=== PATIENT | male | born 1940 | race Hispanic/Latino ===

== ENCOUNTER → 2020-03-17 17:26 | Outpatient (CLI) | payer MEDICARE, SELFPAY | PROVIDERS: PCP Nurse Practitioner Family; Referring Provider Nurse Practitioner Family; Visit Provider Nurse Practitioner Family | DX: U07.1 COVID-19 (principal) | CPT/HCPCS: 87635; C9803; U0003 ==

== ENCOUNTER 2020-04-19 09:53 | Observation (INO) | payer SELFPAY ==
[2020-04-19] VITALS (8 sets, daily range): BP systolic 118–151; BP diastolic 68–77; PULSE 72–88; RESP 16–19; TEMP 36.6–37.7; O2SAT 94–99; BMI 22.3; BMI 21.7
--- NOTE | 2020-04-19 10:10 | EKG12_ITS ---
Test Reason : PAIN IN RIGHT CHEST Blood Pressure : / mmHG Vent. Rate : 079 BPM Atrial Rate : 079 BPM P-R Int : 148 ms QRS Dur : 084 ms QT Int : 362 ms P-R-T Axes : 038 -18 039 degrees QTc Int : 415 ms Normal sinus rhythm Increased R/S ratio in V1, consider early transition or posterior infarct Abnormal ECG Confirmed by NERIS PERDOMO, KARISSA ([id number]), editor & co founder ASHWIN JAQUEZ ([id number]) on 04/21/2020 2:04:39 PM Referred By: PRO Confirmed By:KARISSA CORDON MD
--- NOTE | 2020-04-19 10:11 | CT_ITS ---
STUDY: CT ABDOMEN AND PELVIS WITHOUT CONTRAST REASON FOR EXAM: Male, 79 years old. RT FLANK PAIN. Hx of gout RADIATION DOSAGE (If Supplied By Facility): CTDIvol = ( 6.04 ) mGy, DLP = ( 292.95 ) mGycm TECHNIQUE: Transaxial images were obtained from the dome of the diaphragm to the symphysis pubis without oral contrast, and without intravenous contrast. Sagittal and coronal images were reconstructed. Individualized dose optimization techniques were used for this CT. COMPARISON: None. FINDINGS: Minimal linear atelectasis at the left lung base. The visualized portions of the heart are within normal limits. Normal liver. Tiny gallstones. Normal spleen. Normal pancreas. Normal bilateral adrenal glands. Normal right kidney. Normal left kidney. Normal visualized stomach. Normal small intestine. Normal colon. The appendix is visualized and appears normal. There is diffuse atherosclerotic calcification of the abdominal aorta, without a demonstrated aneurysm. Normal inferior vena cava. Normal retroperitoneum. Normal urinary bladder. There is enlargement of the prostate gland. It measures 3.9 cm x 5.1 cm. Central calcifications are seen within it. There is a left-sided inguinal hernia containing adipose tissue. There are diffuse degenerative changes of the visualized lumbar spine. CT/Abdomen/Pelvis without Cont IMPRESSION: Prostatic enlargement. Tiny gallstones. Electronically Signed: Pawel Hoskins, at 11:11 EST , Service support ,
--- NOTE | 2020-04-19 10:11 | ED.VISSUMM ---
- ER Visit Summary Date of Service: 04/19/20 Chief Complaint: [Abdominal pain] History of Present Illness: The patient is a 79 M [presents to the emergency department with right-sided abdominal pain that started around midnight. Patient rates the pain a 10 out of 10 currently. Patient states that the pain came on gradually and is now continuous. It is not worse with breathing or movement. He was not able eat breakfast this morning. Has had no nausea or vomiting. She had no diarrhea. He denies urinary symptoms. He denies any blood in his stool or black tarry stool. Granddaughter states that he had a fever this morning up to 1015 tympanic. Patient did have history of COVID-19 in early March. Patient has history of gout. He complains of some bilateral knee pain and left ankle pain. Has had no trauma to his chest or extremities. Patient does not speak Tajik and his granddaughter interprets for him.] Patient has history of gout and no other medical issues. Physical Examination: [HEENT-PERRLA, EOMI. Cranial nerves II through XII grossly intact. TMs clear. Mucous membranes moist. No adenopathy. Cardiovascular-regular rate and rhythm without murmur or ectopy Lungs-clear to auscultation, chest wall stable without crepitus or subcu emphysema. Patient does have tenderness palpation of the right anterior chest wall into the mid axillary line. Abdomen-normoactive bowel sounds, soft, nontender, no rebound or rigidity, no peritoneal signs. Patient does have some CVA tenderness on the right. Extremities-intact ?4, normal range of motion, normal pulses, atraumatic. Patient does have some faint erythema to the anterior aspect of the left knee with gouty tophi noted. Patient has pain with range of motion. No significant effusion noted. Patient also has erythema to the lateral aspect of the ankle with pain with range of motion some soft tissue swelling noted. Test Results: [EKG obtained on arrival showed a sinus rhythm with a ventricular rate 79 bpm. CBC with differential showed a white count of 21,000, hemoglobin 12.8, hematocrit 38.8, placed 322. Chemistries unremarkable. LFTs were normal. Lipase 157. Urinalysis was normal. Troponin is less than 0.015. D-dimer was elevated 3.96. Chest x-ray obtained showed increased markings in the lower lung bases right greater than left. CT of the chest showed no evidence of PE or dissection. Patient did have a CT scan of the abdomen pelvis as well without contrast that showed tiny gallstones in her gallbladder and prostatic enlargement.] Emergency Department Course and Treatment: [IV line established on arrival. Patient was medicated with morphine and Zofran. At this time the concern is the elevated temperature at home to 101.5 as well as the elevated white blood cell count with no old comparisons. My suspicion is likely that patient has gouty flare in the knee and ankle however he is having a hard time bearing weight and walking around. My suspicion is low for a septic arthritis however. I did discuss case with hospitalist to evaluate patient for admission and will admit patient with referral to orthopedics.] Treatment Plan: [Admit] Disposition: [Admit] Impression: [Inability to ambulate secondary to knee and ankle pain Chest wall pain Gouty arthropathy] This note was generated with [employer] dictation software. It may contain incorrect words, spelling, and punctuation that were not noted in review of the chart prior to signing ED Disposition - Plan for ED Patient: Referrals: Jose Valdes NP, [facility] [Primary Care Provider] -
[2020-04-19] MEDS: 0.9% Normal Saline 1,000 ML 150 ML IV (10:20)
[2020-04-19 10:23] LABS: Absolute Lymphocyte Count 3.04 X10^3/uL (0.83-4.51); Absolute Neutrophil Count 15.2 X10^3/uL (2.0-7.7); Basophil# 0.06 X10^3/uL; Basophil% 0.3 % (0-1); Eosinophil# 0.03 X10^3/uL; Eosinophils% 0.1 % (0-5); Hematocrit 38.8 % (40-54); Hemoglobin 12.8 g/dL (13.0-16.5); Lymphocyte # 3.04 X10^3/ul (4.0); Lymphocyte % 14.4 % (19-41); Mean Corpuscular Hgb 30.4 pg (27.0-32.0); Mean Corpuscular Volume 92.2 fL (80-94); Mean Platelet Vol. 10.5 fl (6.2-12.0); Monocyte# 2.54 X10^3/uL; Monocyte% 12.1 % (0-10); NRBC Flagged by Analyzer 0 % (0-5); Neutrophil # 15.15 X10^3/uL (2.7-7.7); Neutrophil % 72.1 % (47-70); POSITIVE DIFFERENTIAL YES; Platelet Count 322 K/mm3 (150-450); RBC Distribution Width CV 14.6 % (11.6-14.6); RBC Distribution Width SD 49.6 fl (35.1-43.9); Red Blood Count 4.21 M/mm3 (4.6-6.2)
[2020-04-19] MEDS: Ondansetron 4 MG/2 ML Vial IV (10:25)
--- NOTE | 2020-04-19 10:25 | RAD_ITS ---
STUDY: X-RAY CHEST REASON FOR EXAM: Male, 79 years old. ABDOMINAL PAIN, RECENT COVID TECHNIQUE: Single AP portable view of the chest. COMPARISON: None. FINDINGS: EKG electrodes are seen. Mild increased markings at the lung bases likely more prominent on the right side. Follow-up is recommended. There is no demonstrated pleural abnormality. Normal size heart. Normal mediastinum and goran. Normal visualized pulmonary arteries. There is atherosclerotic calcification of the aortic arch with tortuosity. There are diffuse degenerative changes of the visualized thoracic spine. Normal visualized ribs, clavicles, and shoulders. There is no demonstrated abnormality of the visualized soft tissue structures of the upper abdomen. RAD/Chest 1 View (Portable) IMPRESSION: Mild degree of increased markings at the lung bases worse on the right side. Electronically Signed: Pawel Hoskins, at 10:52 EST , Service support ,
[2020-04-19 10:27] LABS: Differential Indicated SCAN CRITERIA MET
[2020-04-19] MEDS: Morphine 4 MG/ML Syringe IV (10:27)
[2020-04-19 10:41] LABS: ALB/GLOB Ratio 0.8 RATIO (0.9-2.4); AST(SGOT) 14 U/L (15-37); Alanine Aminotransfer ALT/SGPT 23 U/L (16-61); Albumin, Serum 3.2 g/dL (3.2-5.0); Alkaline Phosphatase 76 U/L (45-117); Anion Gap 6 (5-15); BUN 21 mg/dL (7-18); BUN/Creat Ratio 11.9 RATIO (10-20); Calcium,Total 8.9 mg/dL (8.5-10.1); Chloride 108 mmol/L (98-107); Creatinine, Serum 1.76 mg/dL (0.70-1.30); EST Glomerular Filtration Rate 40 mL/min (>60); Est Glom Filt Rate - Afr Amer 48 mL/min (>60); Estimated Creatinine Clearance 31.04 ml/min; Globulin 4.2 g/dL (2.2-4.2); Glucose 106 mg/dL (74-106); Lipase 157 U/L (73-393); Potassium 3.9 mmol/L (3.5-5.1); Protein, Total 7.4 g/dL (6.4-8.2); Sodium Level 140 mmol/L (136-145)
[2020-04-19 10:43] LABS: D-Dimer Quantitative (DVT/PE) 3.96 FEU/ug/m (0.27-0.49)
--- NOTE | 2020-04-19 10:47 | CT_ITS ---
STUDY: CTA CHEST REASON FOR EXAM: Male, 79 years old. CP RADIATION DOSAGE (If Supplied By Facility): CTDIvol = ( 10.59 ) mGy, DLP = ( 491.78 ) mGycm TECHNIQUE: The examination was performed with the intravenous administration of IV 75mL Isovue-370. Post-processing of the angiographic images was performed, with multiplanar reformation and 3D reconstruction. Individualized dose optimization techniques were used for this CT. COMPARISON: Comparison is made with prior radiograph done earlier in the day. FINDINGS: Normal enhancement of the main pulmonary artery and right and left pulmonary arteries. Normal enhancement of the bilateral peripheral pulmonary arteries. There is no demonstrated pulmonary embolism. There is atherosclerotic calcification of the aortic arch with tortuosity. There is no demonstrated aortic dissection. There are calcifications of the coronary arteries. Normal mediastinum. Normal hilar regions. Normal visualized trachea and bronchi. The lungs are well expanded. 6.6 mm calcified granuloma in the anterior right upper lobe. Minimal increased markings in the peripheral aspect of the right upper lobe suggestive of a scarring. Mild degree of localized bronchiectasis. Normal pleura. Normal chest wall structures. There are degenerative changes of thoracic spine. Small hilar hernia. CT/CTA Chest W/WO Contrast IMPRESSION: Calcified granuloma in the right lung apex. Findings suggestive of scarring in the anterior lateral aspect of the right upper lobe. Electronically Signed: Pawel Hoskins, at 12:09 EST , Service support ,
[2020-04-19 12:02] LABS: Bacteria 0 SEEN /hpf (None Seen); Mucous, Urine 0 SEEN /hpf (<or=2+); Squamous Epithelial Cells - UA 0 SEEN /hpf (0-5)
[2020-04-19 12:18] LABS: Color, Urine Yellow (Yellow); Glucose, Dipstick Normal (Normal); Ketone-Dipstick Negative (Negative); Leukocyte Esterase-Dipstick 25 /ul (Negative); Nitrite-Dipstick Negative (Negative); Occult Blood-Urine 25 /ul (Negative); Protein-Dipstick 100 mg/dl (Negative); Urine Bilirubin Dipstick Negative (Negative); Urine Clarity Clear (Clear); Urine Urobilinogen Normal (Normal)
[2020-04-19 12:30] LABS: Red Blood Cells-Urine 0-5 SEEN /hpf (0-5); White Blood Cells 0-5 SEEN /hpf (0-5)
--- NOTE | 2020-04-19 13:02 | HP.PCM_ITS ---
Problem List (1) SIRS (systemic inflammatory response syndrome) Status: Acute (2) Gout attack Status: Acute History of Present Illness Date of Admission: 04/19/20 Chief Complaint: fever. knee and ankle pain The patient is a 79 year old M presents not feeling well this morning. Had a temperature of 101.5 at home. Patient is also having pain in his left knee and ankle. Patient does have known history of gout but just has never felt ill with gout flares before so presented to the emergency room. In the emergency room patient had a white count of 21,000. Due to some translation injury issues is concerned the patient was having abdominal pain so patient did have an abdominal CT that showed no acute process. The hospital service was contacted for admission regards to evaluation for further infectious etiology regards to the patient's symptoms. Patient did contract COVID-19 earlier in March. According to his granddaughter, his course was uncomplicated. Patient does not speak Angolan so history is obtained through the patient's granddaughter who is present at bedside. [] Past Medical History Medical History: Medical History (Last Reviewed 04/19/20 @ 13:[address] Diaz Rivas DO) Gout M10.9 HTN (hypertension) I10 Allergies Penicillins Allergy (Verified 04/19/20 09:56) Swelling Home Medications: Ambulatory Orders Medication Instructions Recorded Allopurinol 50 mg PO DAILY 04/19/20 Lisinopril 2.5 mg PO DAILY 04/19/20 Smoking Status: Never smoker Alcohol: None - *Family History Maternal Family History: Family History (Last Reviewed 04/19/20 @ 13:[address] Diaz Rivas DO) Other Gout Review of Systems Constitutional: Reports: Chills, Fever, Malaise. Denies: Anorexia Eyes: Denies: Blurred vision, Double vision HEENT: Denies: Head Aches, Sinus Congestion, Sinus Drainage Cardiovascular: Denies: Chest Pain, Palpitations Respiratory: Denies: Cough, Shortness of breath at rest, Sputum production Gastrointestinal: Denies: Abdominal Pain, Nausea, Vomiting Genitourinary: Denies: Dysuria Hematologic/ Lymphatic: Denies: Easy Bruising, Easy Bleeding, Hx of blood clot Comment: All review of systems were negative except as mentioned above in the history of present illness and the other review of systems. VTE Information - Inpt Only VTE Present on Admission: No VTE Mechan Device Prophylaxis: None VTE Pharm Prophylaxis ordered?: No - Physical Exam Vitals/I&O's: Vital Signs Temp Pulse Resp BP Pulse Ox 37.7 C H 77 18 138/73 H 97 04/19/20 10:28 04/19/20 10:28 04/19/20 10:28 04/19/20 10:28 04/19/20 10:28 Oxygen Delivery Method Room Air Weight: 66.678 kg Body Mass Index (BMI) 22.3 General: Alert, Cooperative, No apparent distress HEENT: Atraumatic, Normocephalic Oral: Moist Mucosa, No Gingival or Mucosal Lesions/ Ulcerations Neck: No Nodes, Thyroid Normal Size and Texture Lungs: Clear to auscultation, Normal air movement Cardiovascular: Regular rate, Regular Rhythm, Normal S1, Normal S2, No murmurs Abdomen: Bowel Sounds Present, Soft, Non Tender, Non-Distended, No Hepato- splenomegaly Extremities: - - Patient with tenderness and swelling of the left knee and left lateral ankle with tenderness palpation tophi noted on the anterior right knee. Psych/Mental Status: Normal Affect, Appropriate Laboratory Results 04/19/20 10:15: WBC 21.0 H, RBC 4.21 L, Hgb 12.8 L, Hct 38.8 L, MCV 92.2, MCH 30.4, MCHC 33.0, RDW Std Deviation 49.6 H, RDW Coeff of [place] 14.6, Plt Count 322, MPV 10.5, Immature Gran % (Auto) 1.000 H, Neut % (Auto) 72.1 H, Lymph % (Auto) 14.4 L, [place] % (Auto) 12.1 H, Eos % (Auto) 0.1, Baso % (Auto) 0.3, Absolute Neuts (auto) 15.2 H, Absolute Lymphs (auto) 3.04, Nucleated RBC % 0, Diff Path Review September04/19/20 10:15: D-Dimer Quant (PE/DVT) 3.96 H* 04/19/20 10:15: Sodium 140, Potassium 3.9, Chloride 108 H, Carbon Dioxide 26.0, Anion Gap 6, BUN 21 H, Creatinine 1.76 H, Estim Creat Clear Calc 31.04, Est GFR (MDRD) Af Amer 48 L, Est GFR (MDRD) Non-Af 40 L, BUN/Creatinine Ratio 11.9, Glucose 106, Calcium 8.9, Total Bilirubin 0.60, AST 14 L, ALT 23, Alkaline Phosphatase 76, Troponin I < 0.015, Total Protein 7.4, Albumin 3.2, Globulin 4.2, Albumin/Globulin Ratio 0.8 L, Lipase 157 04/19/20 10:15: ESR Pending 04/19/20 10:15: Uric Acid Pending, C-React Prot Ext Range Pending 04/19/20 11:47: Urine Color Yellow, Urine Clarity Clear, Urine pH 6.0, Ur Specific [place] 1.010, Urine Protein 100 H, Urine Glucose (UA) Normal, Urine Ketones Negative, Urine Occult Blood 25 H, Urine Nitrite Negative, Urine Bilirubin Negative, Urine Urobilinogen Normal, Ur Leukocyte Esterase 25 H, Urine RBC 0-5 SEEN, Urine WBC 0-5 SEEN, Ur Squamous Epith Cells 0 SEEN, Urine Bacteria 0 SEEN, Urine Mucus 0 SEEN Clinical Impression(s) from Imaging Studies Abdomen/Pelvis CT 04/19/20 10:11 IMPRESSION: Prostatic enlargement. Tiny gallstones. Electronically Signed: Pawel Hoskins, at 11:11 EST , Service support , Chest X-Ray 04/19/20 10:25 IMPRESSION: Mild degree of increased markings at the lung bases worse on the right side. Electronically Signed: Pawel Hoskins, at 10:52 EST , Service support , Chest CTA 04/19/20 10:47 IMPRESSION: Calcified granuloma in the right lung apex. Findings suggestive of scarring in the anterior lateral aspect of the right upper lobe. Electronically Signed: Pawel Hoskins, at 12:09 EST , Service support , Current Medications Sodium Chloride () 1,000 mls @ 150 mls/hr IV .[id number] KATHY Last Admin: 04/19/20 10:20 Dose: 150 mls/hr Documented by: Assessment/Plan All Active Problems SIRS (systemic inflammatory response syndrome) (Acute) Gout attack (Acute) 1. Systemic inflammatory spine syndrome: Feel that this is actually an infectious process but more inflammatory due to an acute gout flare. Infectious work-up thus far has been unremarkable. 2. Suspected acute gout flare in the left knee and left ankle. Discussed with Dr. Cao and discussed the case with her. Informed her that I feel that this is more likely a gout flare but cannot rule out septic arthritis. She is agreed to see the patient in consult and perform an aspiration. We will check the aspirate for crystals as well as Gram stain and culture. If this is confirmed to be gout then would initiate the patient on prednisone. 3. VTE prophylaxis: Not indicated this time patient is observation status. OBSV E&M: [id number] Initial observation care L2
[2020-04-19 13:10] LABS: Erythrocyte Sedimentation Rate 58 mm/hr (0-20); Uric Acid 5.7 mg/dL (3.5-7.2)
[2020-04-19 13:41] LABS: Pathologist Comment May follow
[2020-04-19 14:32] LABS: Synovial Fld Mononuclear WBC % 16.1 %; Synovial Fld Polynuclear WBC % 83.9 %
--- NOTE | 2020-04-19 14:54 | CONS.ORTHO ---
Problem List (1) Left knee pain Status: Acute Qualifiers: Chronicity: acute Qualified Code(s): M25.562 - Pain in left knee Comment: Rule out septic joint - Consult Date of Consult: 04/19/20 Patient seen at bedside in room #9 in the emergency department for left knee pain. Patient came to the emergency department today with primary complaint of left knee pain. He was having a low-grade fever prior to coming the emergency department and was thought to have some abdominal pain at the same time with his daughter here it turns out his complaint was the knee pain. Patient was resting comfortably with no signs of acute distress or discomfort on entering the room. Patient is breathing easily and is alert and oriented x3 (patient does have his daughter translating for him as he does not speak Montserratian.) Inspection of the left knee shows evidence of generalized swelling with mild to moderate effusion. There is no generalized erythema of the knee. Patient does have warmth on palpation of the knee with some minor tenderness on palpation as well. There is no indurated areas. Patient does have intact motor function of the knee/ankle/foot. His lower leg compartments are soft and nontender with no calf tenderness and negative Homans. Patient does have some minor swelling of the ankle joint with some minor pink erythema on the lateral aspect. He has no tenderness on palpation of the ankle he states. At this time the knee was prepped with Betadine prep sticks and wiped with alcohol swab and then the joint was aspirated using a superior retropatellar approach. Approximately 34 cc of bright yellow slightly turbid fluid was pulled from the joint. There was no ra pus/purulence no evident arthrosis. Fluid will be sent for a stat cell count and Gram stain as well as culture and sensitivity as well as crystal analysis. Next after treatment really is pending these results. If there is any evidence of bacterial organism/septic joint the patient be taken to the OR for irrigation. If no infection but other cause determined he will be treated appropriately. Notify our office of increasing pain, increased swelling/effusion, erythema, or other signs of inflammation or infection. - Reason for Consult Consultation for left knee pain with effusion to rule out septic joint versus gouty arthropathy. Aspiration was performed at bedside labs run from fluid. [id number]: [id number] Drain/inj joint/bursa w/o us
[2020-04-19 15:44] LABS: RBC /Synovial Fluid 0 /mm3 (0)
[2020-04-19 15:45] LABS: AUTO B FLUID DILUENT BKGD CT WBC <0.1 RBC <0.01 (W<.1,R<.01); Source / Synovial Fluid LEFT KNEE; Source- Body Fluid SYNOVIAL
[2020-04-19 15:46] LABS: Appearance /Synovial Fluid Sl hazy (CLEAR); Color / Synovial Fluid Yellow (Pale Yellow); Viscosity / Synovial Fluid Mod. Viscous (HIGH)
[2020-04-19 15:51] LABS: Lymph 2 %; Monocyte /Synovial Fluid 17 %; Neutrophil 81 % (0-25); Other Cell /Synovial Fluid 0 %; Plasma Cell /Synovial Fluid 0 %
[2020-04-19 15:52] LABS: Body Fluid QC Type(s) BFQ1
[2020-04-19 15:53] LABS: Synovial Fld Mononuclear WBC # 2.201 10^3/ul
[2020-04-19 16:06] LABS: CRYSTALS, BODY FLUID MONOSODIUM URATE
--- NOTE | 2020-04-19 17:04 | PCS.PANDOC ---
PANDEMIC DOCUMENTATION INITIATED: Date: 04/19/20 Time: 1640
[2020-04-19] MEDS: predniSONE 20 MG Tablet 60 MG PO (17:13)
[2020-04-19] MEDS: Acetaminophen 325 MG Tablet 650 MG PO (19:06)
[2020-04-19] MEDS: oxyCODONE 5 MG Tablet PO (19:06)
[2020-04-20 01:25] VITALS: PULSE 54
[2020-04-20 04:00] VITALS: BP 120/57; PULSE 53; RESP 16; TEMP 36.4; O2SAT 98
[2020-04-20 07:13] LABS: Absolute Lymphocyte Count 1.55 X10^3/uL (0.83-4.51); Absolute Neutrophil Count 11.4 X10^3/uL (2.0-7.7); Basophil# 0.01 X10^3/uL; Basophil% 0.1 % (0-1); Hematocrit 36.7 % (40-54); Hemoglobin 11.8 g/dL (13.0-16.5); Lymphocyte # 1.55 X10^3/ul (4.0); Lymphocyte % 11.4 % (19-41); Mean Corp Hgb Conc 32.2 g/dL (32-36); Mean Corpuscular Hgb 29.5 pg (27.0-32.0); Mean Corpuscular Volume 91.8 fL (80-94); Mean Platelet Vol. 10.6 fl (6.2-12.0); Monocyte# 0.58 X10^3/uL; Monocyte% 4.3 % (0-10); NRBC Flagged by Analyzer 0 % (0-5); Neutrophil # 11.37 X10^3/uL (2.7-7.7); Neutrophil % 83.3 % (47-70); Platelet Count 308 K/mm3 (150-450); RBC Distribution Width CV 14.5 % (11.6-14.6); RBC Distribution Width SD 48.8 fl (35.1-43.9); White Blood Count 13.6 K/mm3 (4.4-11.0)
[2020-04-20 07:37] LABS: ALB/GLOB Ratio 0.6 RATIO (0.9-2.4); AST(SGOT) 16 U/L (15-37); Alanine Aminotransfer ALT/SGPT 21 U/L (16-61); Albumin, Serum 2.7 g/dL (3.2-5.0); Alkaline Phosphatase 69 U/L (45-117); Anion Gap 4 (5-15); BUN 22 mg/dL (7-18); BUN/Creat Ratio 15.5 RATIO (10-20); Calcium,Total 8.9 mg/dL (8.5-10.1); Chloride 108 mmol/L (98-107); Creatinine, Serum 1.42 mg/dL (0.70-1.30); EST Glomerular Filtration Rate 51 mL/min (>60); Est Glom Filt Rate - Afr Amer 62 mL/min (>60); Estimated Creatinine Clearance 37.43 ml/min; Globulin 4.2 g/dL (2.2-4.2); Glucose 149 mg/dL (74-106); Potassium 4.7 mmol/L (3.5-5.1); Protein, Total 6.9 g/dL (6.4-8.2); Sodium Level 136 mmol/L (136-145)
[2020-04-20] MEDS: predniSONE 20 MG Tablet 40 MG PO (08:28)
[2020-04-20] MEDS: Allopurinol 100 MG Tablet 50 MG PO (08:29)
[2020-04-20] MEDS: Lisinopril 2.5 MG Tablet PO (08:29)
--- NOTE | 2020-04-20 08:45 | PCM.DC ---
- Discharge Diagnoses Current Active Problems: Current Active and Chronic Problems (Last Reviewed 04/19/20 @ 13:[address] Diaz Rivas, DO) SIRS (systemic inflammatory response syndrome) (Acute) Gout attack (Acute) Left knee pain (Acute) Rule out septic joint You will use the following diet at home:: No restrictions - no alcohol. coffee is ok to drink. Call your doctor if you observe: - - worsening knee and ankle pain. Allergies/Adverse Reactions: Allergies Penicillins Allergy (Verified 04/19/20 09:56) Swelling Medications to take at Discharge Acetaminophen [Tylenol Extra Strength] 500 mg PO DAILY PRN PRN 04/19/20 Allopurinol 50 mg PO DAILY 04/19/20 Lisinopril 2.5 mg PO DAILY 04/19/20 Prednisone 10 mg PO DAILY #30 tab 04/20/20 The following prescriptions were given: Prednisone 10 mg PO DAILY #30 tab Transmission Status: Pending to [id number] Primary Care Physician: Jose Valdes NP, [facility]ATORY CARE-C [Primary Care Provider] - Within 2 Weeks Test Results: Test results from this visit will be discussed in further detail at your follow-up appointment, if applicable. Proposed Discharge Date: 04/20/20
[2020-04-20 08:46] VITALS: BP 145/78; PULSE 60; RESP 18; TEMP 36.6; O2SAT 99
--- NOTE | 2020-04-20 08:46 | PCM.DC.SUM ---
Discharge Date and Diagnosis - Problem List Patient Problems: Active and Suspected Problems (Last Reviewed 04/19/20 @ 13:[address] Diaz Rivas DO) SIRS (systemic inflammatory response syndrome) (Acute) Gout attack (Acute) Left knee pain (Acute) Rule out septic joint Date of Admission: 04/19/20 Date of Discharge: 04/20/20 - Primary Discharge Diagnosis Acute Problems: Active Problems (Last Reviewed 04/19/20 @ 13:[address] Diaz Rivas DO) SIRS (systemic inflammatory response syndrome) (Acute) Gout attack (Acute) Left knee pain (Acute) Rule out septic joint Hospital Course and Treatment Imaging Results: Clinical Impression(s) from Imaging Studies Abdomen/Pelvis CT 04/19/20 10:11 IMPRESSION: Prostatic enlargement. Tiny gallstones. Electronically Signed: Pawel Hoskins, at 11:11 EST , Service support , Chest X-Ray 04/19/20 10:25 IMPRESSION: Mild degree of increased markings at the lung bases worse on the right side. Electronically Signed: Pawel Hoskins, at 10:52 EST , Service support , Chest CTA 04/19/20 10:47 IMPRESSION: Calcified granuloma in the right lung apex. Findings suggestive of scarring in the anterior lateral aspect of the right upper lobe. Electronically Signed: Pawel Hoskins, at 12:09 EST , Service support , [facility] Operations: None Procedures: - - left knee arthrocentesis Summary of Care Provided: The patient is a 79 year old M of left knee and ankle pain and swelling. Patient has known history of gout. Patient was noted to have a low-grade temperature at home as well as leukocytosis here. Patient met criteria for systemic inflammatory response syndrome. Patient was very tender on his knee and seem more consistent with a gout flare. Discussed with orthopedics who performed an arthrocentesis that did show monosodium urate consistent with a gout flare. Patient was started on prednisone and today his pain is resolved. Patient has minimal swelling and no tenderness in his knee and ankle today. 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 Patient does not speak [place] nor does he read Barb[place]. So using [email or web address], I was able to communicate with him by reading the interpretations to him. I try to have the patient speak directly into the phone but he thought I was calling his granddaughter Georgiana. Left a message with his granddaughter. [] Patient Problems: Active and Suspected Problems (Last Reviewed 04/19/20 @ 13:[address] Diaz Rivas, DO) SIRS (systemic inflammatory response syndrome) (Acute) Gout attack (Acute) Left knee pain (Acute) Rule out septic joint - Physical Exam Vitals/I&O's: Vital Signs Temp Pulse Resp BP Pulse Ox 36.4 C L 53 L 16 120/57 L 98 04/20/20 04:00 04/20/20 04:00 04/20/20 04:00 04/20/20 04:00 04/20/20 04:00 Oxygen Delivery Method Room Air Weight: 64.864 kg Body Mass Index (BMI) 21.7 Intake and Output for Last 24 Hours 04/18/20 04/19/20 04/20/20 23:59 23:59 23:59 Intake Total 1200 / 1200 Balance 1200 / 1200 General: Alert, No apparent distress HEENT: Atraumatic, Normocephalic Extremities: - - decreased swelling and pain of left knee and lateral left ankle. Microbiology Past 72 Hours 04/19/20 13:15 Fluid - Synovial (joint) Gram Stain - Final Laboratory Results 04/19/20 10:15: WBC 21.0 H, RBC 4.21 L, Hgb 12.8 L, Hct 38.8 L, MCV 92.2, MCH 30.4, MCHC 33.0, RDW Std Deviation 49.6 H, RDW Coeff of [place] 14.6, Plt Count 322, MPV 10.5, Immature Gran % (Auto) 1.000 H, Neut % (Auto) 72.1 H, Lymph % (Auto) 14.4 L, Charles % (Auto) 12.1 H, Eos % (Auto) 0.1, Baso % (Auto) 0.3, Absolute Neuts (auto) 15.2 H, Absolute Lymphs (auto) 3.04, Nucleated RBC % 0, Diff Path Review May 04/19/20 10:15: D-Dimer Quant (PE/DVT) 3.96 H* 04/19/20 10:15: Sodium 140, Potassium 3.9, Chloride 108 H, Carbon Dioxide 26.0, Anion Gap 6, BUN 21 H, Creatinine 1.76 H, Estim Creat Clear Calc 31.04, Est GFR (MDRD) Af Amer 48 L, Est GFR (MDRD) Non-Af 40 L, BUN/Creatinine Ratio 11.9, Glucose 106, Calcium 8.9, Total Bilirubin 0.60, AST 14 L, ALT 23, Alkaline Phosphatase 76, Troponin I < 0.015, Total Protein 7.4, Albumin 3.2, Globulin 4.2, Albumin/Globulin Ratio 0.8 L, Lipase 157 04/19/20 10:15: ESR 58 H 04/19/20 10:15: Uric Acid 5.7, C-React Prot Ext Range 132.00 H 04/19/20 11:47: Urine Color Yellow, Urine Clarity Clear, Urine pH 6.0, Ur Specific [place] 1.010, Urine Protein 100 H, Urine Glucose (UA) Normal, Urine Ketones Negative, Urine Occult Blood 25 H, Urine Nitrite Negative, Urine Bilirubin Negative, Urine Urobilinogen Normal, Ur Leukocyte Esterase 25 H, Urine RBC 0-5 SEEN, Urine WBC 0-5 SEEN, Ur Squamous Epith Cells 0 SEEN, Urine Bacteria 0 SEEN, Urine Mucus 0 SEEN 04/19/20 13:15: Fluid Crystals MONOSODIUM URATE, Fluid Crystal Source SYNOVIAL, Fl Crystal Path Review Will follow, Synovial Source LEFT KNEE, Synovial Color Yellow, Synovial Appearance Sl hazy, Synovial Volume 2.0, Synovial Viscosity Mod. Viscous, Synovial WBC 12.4400 H, Synovial RBC 0, Synovial Tot Cell Ct 12.4900 H, Synov Polynuclear WBCs 11.424, Synov Mononuclear WBCs 2.201, Synovial Neutrophils 81 H, Synovial Lymphocytes 2, Synovial Monocytes 17, Synovial Plasma Cells 0, Synovial Other Cells 0, Synovial Polynuclear % 83.9, Synovial Mononuclear % 16.1, Synovial Path Comment May follow 04/20/20 05:52: WBC 13.6 H, RBC 4.00 L, Hgb 11.8 L, Hct 36.7 L, MCV 91.8, MCH 29.5, MCHC 32.2, RDW Std Deviation 48.8 H, RDW Coeff of [place] 14.5, Plt Count 308, MPV 10.6, Immature Gran % (Auto) 0.900, Neut % (Auto) 83.3 H, Lymph % (Auto) 11.4 L, Charles % (Auto) 4.3, Eos % (Auto) 0.0, Baso % (Auto) 0.1, Absolute Neuts (auto) 11.4 H, Absolute Lymphs (auto) 1.55, Nucleated RBC % 0 04/20/20 05:52: Sodium 136, Potassium 4.7, Chloride 108 H, Carbon Dioxide 24.0, Anion Gap 4 L, BUN 22 H, Creatinine 1.42 H, Estim Creat Clear Calc 37.43, Est GFR (MDRD) Af Amer 62, Est GFR (MDRD) Non-Af 51 L, BUN/Creatinine Ratio 15.5, Glucose 149 H, Calcium 8.9, Total Bilirubin 0.60, AST 16, ALT 21, Alkaline Phosphatase 69, Total Protein 6.9, Albumin 2.7 L, Globulin 4.2, Albumin/Globulin Ratio 0.6 L Current Medications Acetaminophen (Acetaminophen 325 Mg Tablet) 650 mg PO Q6H PRN PRN PRN Reason: Pain Score 1-10/Temp > 100.7 F Last Admin: 04/19/20 19:06 Dose: 650 mg Documented by: Allopurinol (Allopurinol 100 Mg Tablet) 50 mg PO DAILY [facility] Last Admin: 04/20/20 08:29 Dose: 50 mg Documented by: Lisinopril (Lisinopril 2.5 Mg Tablet) 2.5 mg PO DAILY [facility] Last Admin: 04/20/20 08:29 Dose: 2.5 mg Documented by: Oxycodone HCl (Oxycodone 5 Mg Tablet) 5 mg PO Q4H PRN PRN PRN Reason: Pain Score 6-10 Last Admin: 04/19/20 19:06 Dose: 5 mg Documented by: Prednisone (Prednisone 20 Mg Tablet) 40 mg PO DAILY@0800 [facility] Last Admin: 04/20/20 08:28 Dose: 40 mg Documented by: Sodium Chloride (0.9% Saline Lock 10 Ml Syringe) 10 - 40 ml IV UD PRN PRN Reason: SALINE FLUSH Discharge Diet: No Restrictions Discharge Activity: Return to Normal Activity Call your doctor if you observe: - - worsening knee and ankle pain. Home Medications: Medications to take at Discharge Acetaminophen [Tylenol Extra Strength] 500 mg PO DAILY PRN PRN 04/19/20 Allopurinol 50 mg PO DAILY 04/19/20 Lisinopril 2.5 mg PO DAILY 04/19/20 Prednisone 10 mg PO DAILY #30 tab 04/20/20 Following Prescriptions Were Given to Patient: Prednisone 10 mg PO DAILY #30 tab Transmission Status: Pending to [id number] Primary Care Physician: Jose Valdes NP, OXYACETYLENE BURNER-C [Primary Care Provider] - Within 2 Weeks Disposition: Home Minutes spent on discharge:: 30 Medical Necessity - Tobacco Use Smoking Status: Never smoker Tobacco Use: Non-smoker Meaningful Use Info Meaningful Use Diagnoses (Choose all that apply): None applicable OBSV E&M: 71296 Observation care discharge
[2020-04-20 12:03] LABS: Pathologist Review Reviewed
[2020-04-20 12:05] LABS: Pathologist Review Reviewed
[2020-04-22 14:05] LABS: GLUCOSE, SYNOVIAL FLUID 83 mg/dL (.)
[2020-04-22 14:29] LABS: PROTEIN, SYNOVIAL FLUID 3.3 g/dL (.)
== END 2020-04-20 10:25 | disposition home or self-care (01) ==
LOC: ED 10:58 → MS3 15:48
PROVIDERS: Emergency Provider Emergency Medicine; PCP Nurse Practitioner Family
DX: M10.9 Gout, unspecified (principal); R65.10 Systemic inflammatory response syndrome (SIRS) of non-infectious origin without acute organ dysfunction; M25.562 Pain in left knee; M25.572 Pain in left ankle and joints of left foot; M25.561 Pain in right knee; N40.0 Benign prostatic hyperplasia without lower urinary tract symptoms; Z79.899 Other long term (current) drug therapy; I10 Essential (primary) hypertension; R10.9 Unspecified abdominal pain
CPT/HCPCS: 20610; 36415; 71045; 71275; 74176; 80053; 81001; 82945; 83690; 84157; 84484; 84550; 85025; 85379; 85652; 86140; 87070; 87075; 87205; 89050; 89051; 89060; 93005; 96361; 96374; 96375; 99218; 99285; J7030; Q9967; A4216; G0378; J2405